=== PATIENT | female | born 1995 | race American Indian/Alaskan Native ===

== ENCOUNTER 2017-04-12 08:34 | Emergency (ER) | payer SELFPAY ==
[2017-04-12 09:02] LABS: Eosinophils % (Auto) 4.3 % (0.0-4.3); Hematocrit 42.6 % (30.3-42.9); Hemoglobin 14.5 gm/dl (10.1-14.3); Mean Corpuscular HGB Conc 34 % (30-34); Mean Corpuscular Hemoglobin 34 pg (28-32); Mean Corpuscular Volume 99 fl (79-97); Platelet Count 179 K/mm3 (140-440); Red Blood Count 4.31 M/mm3 (3.65-5.03); Red Cell Distribution Width 12.7 % (13.2-15.2); White Blood Count 7.5 K/mm3 (4.5-11.0)
[2017-04-12 09:30] LABS: Alanine Aminotransferase 11 units/L (7-56); Albumin 4.1 g/dL (3.9-5); Albumin/Globulin Ratio 1.5 %; Alkaline Phosphatase 78 units/L (35-129); Anion Gap 15 mmol/L; BUN/Creatinine Ratio 14; Blood Urea Nitrogen 10 mg/dL (7-17); Calcium 8.9 mg/dL (8.4-10.2); Carbon Dioxide 25 mmol/L (22-30); Chloride 102.9 mmol/L (98-107); Glucose 85 mg/dL (65-100); Lipase 34 units/L (13-60); Potassium 4.2 mmol/L (3.6-5.0); Sodium 139 mmol/L (137-145); Total Protein 6.8 g/dL (6.3-8.2)
[2017-04-12 09:59] LABS: Bacteria,Urine 1+ /HPF (Negative); Bilirubin,Urine NEG (Negative); Blood,Urine LG (Negative); Ketones,Urine NEG (Negative); Leukocyte Esterase,Urine NEG (Negative); Nitrite,Urine NEG (Negative); Urobilinogen,Urine < 2.0 mg/dL (<2.0)
[2017-04-12 10:01] LABS: RBC,Urine > 182.0 /HPF (0.0-6.0)
[2017-04-12 11:29] VITALS: BP 121/71
[2017-04-12] MEDS ORDERED: PEPCID PO ONE (11:46)
[2017-04-12] MEDS ORDERED: CARAFATE PO ONE (11:46)
[2017-04-12] MEDS ORDERED: TYLENOL PO ONE (11:46)
--- NOTE | 2017-04-12 11:47 | Emergency Department Report ---
ED General Adult HPI - General Chief complaint: Abdominal Pain Stated complaint: ABDOMINAL PAIN Time Seen by Provider: 04/12/17 11:38 Source: patient, RN notes reviewed Mode of arrival: Ambulatory Limitations: No Limitations - History of Present Illness Initial comments: This is a 21-year-old female who was previously unknown to this provider. States no history of abdominal surgeries, no primary care doctor, and does not take oral contraceptives. Patient further reports that she is not given for the past 2 months. The patient presents to the ER with a primary complaint of epigastric abdominal pain. The pain is intermittent, and worsens when she eats. It decreases with rest. Positive nausea, no vomiting. Patient also endorses "migraine" headache. The headache is throbbing and gradual. It is not sudden or thunderclap in nature. It did not reach maximal intensity within an hour, and it is not the worse headache of her life. Patient reports that she feels like her vision gets blurry intermittently, and reports that this happens approximately 3 times daily, and that this is been happening for weeks and months. It does not radiate anywhere, and it has no exacerbating or relieving factors. Patient is currently on a cellular phone, and is requesting to leave because her ride is here to pick her up. -: Gradual, week(s), month(s) Location: head, abdomen Severity scale (0 -10): 5 Quality: aching Consistency: intermittent Improves with: none Worsens with: none Associated Symptoms: headaches, loss of appetite, malaise, nausea/vomiting. denies: confusion, chest pain, cough, diaphoresis, fever/chills, rash, seizure, shortness of breath, syncope - Related Data Previous Rx's Medication Instructions Recorded Last Taken Type Acetaminophen [Tylenol Arthritis] 650 mg PO Q6HR PRN #30 tablet.er 04/12/17 Unknown Rx Famotidine [Pepcid] 20 mg PO QDAY #30 tablet 04/12/17 Unknown Rx Metoclopramide [Reglan] 10 mg PO QID PRN #30 tab 04/12/17 Unknown Rx Allergies Allergy/AdvReac Type Severity Reaction Status Date / Time No Known Allergies Allergy Unverified 04/12/17 08:43 ED Review of Systems ROS: Stated complaint: ABDOMINAL PAIN Other details as noted in HPI ED Past Medical Hx - Past Medical History Previous Medical History?: No - Surgical History Past Surgical History?: Yes Additional Surgical History: Right eye surgery - Social History Smoking Status: Current Every Day Smoker Substance Use Type: Alcohol, Marijuana - Medications Home Medications: Home Medications Medication Instructions Recorded Confirmed Last Taken Type Acetaminophen [Tylenol Arthritis] 650 mg PO Q6HR PRN #30 tablet.er 04/12/17 Unknown Rx Famotidine [Pepcid] 20 mg PO QDAY #30 tablet 04/12/17 Unknown Rx Metoclopramide [Reglan] 10 mg PO QID PRN #30 tab 04/12/17 Unknown Rx ED Physical Exam - General Limitations: No Limitations General appearance: alert, in no apparent distress - Head Head exam: Present: atraumatic, normocephalic - Eye Eye exam: Present: normal appearance, PERRL, EOMI, other (visual acuity intact to finger counting, color perception, reading at a close distance). Absent: nystagmus - ENT ENT exam: Present: normal exam, normal orophraynx, mucous membranes moist, TM's normal bilaterally, normal external ear exam - Neck Neck exam: Present: normal inspection, full ROM - Respiratory Respiratory exam: Present: normal lung sounds bilaterally. Absent: respiratory distress - Cardiovascular Cardiovascular Exam: Present: regular rate, normal rhythm. Absent: systolic murmur, diastolic murmur, rubs, gallop - GI/Abdominal GI/Abdominal exam: Present: soft, normal bowel sounds. Absent: distended, tenderness, guarding, rebound, rigid, pulsatile mass - External exam: Present: normal external exam Speculum exam: Present: normal speculum exam, vaginal bleeding, other (patient currently menstruating). Absent: cervical discharge Bi-manual exam: Present: normal bi-manual exam, other (escorted by ER guest services ambassador PANCHO NAVA). Absent: cervical motion tendernes, adnexal tenderness, adnexal mass, uterine enlargement, uterine tenderness - Extremities Exam Extremities exam: Present: normal inspection, full ROM, normal capillary refill. Absent: pedal edema, joint swelling, calf tenderness - Back Exam Back exam: Present: normal inspection, full ROM. Absent: tenderness, CVA tenderness (R), paraspinal tenderness, vertebral tenderness - Neurological Exam Neurological exam: Present: alert, oriented X3, CN II-XII intact, normal gait ( normal gait, normal tandem gait, no pronator drift, negative pass pointing, normal appiah, negative Romberg), other (Extraocular movements intact. Tongue midline. No facial droop. Facial sensation intact to light touch in the V1, V2 , V3 distribution bilaterally. 5 and 5 strength in 4 extremities.. Sensation is intact to light touch in 4 extremities.). Absent: motor sensory deficit - Psychiatric Psychiatric exam: Present: normal affect, normal mood - Skin Skin exam: Present: warm, dry, intact, normal color. Absent: rash ED Course Vital Signs 04/12/17 04/12/17 04/12/17 08:43 11:26 11:29 Temperature 99 F 98.4 F Pulse Rate 64 Respiratory 22 16 Rate Blood Pressure 127/82 Blood Pressure 121/71 [Left] O2 Sat by Pulse 100 100 Oximetry ED Medical Decision Making - Lab Data Result diagrams: 04/12/17 08:50 04/12/17 08:50 Vital Signs 04/12/17 04/12/17 04/12/17 08:43 11:26 11:29 Temperature 99 F 98.4 F Pulse Rate 64 Respiratory 22 16 Rate Blood Pressure 127/82 Blood Pressure 121/71 [Left] O2 Sat by Pulse 100 100 Oximetry Lab Results 04/12/17 04/12/17 04/12/17 Range/Units 08:50 08:50 09:10 WBC 7.5 (4.5-11.0) K/mm3 RBC 4.31 (3.65-5.03) M/mm3 Hgb 14.5 H (10.1-14.3) gm/dl Hct 42.6 (30.3-42.9) % MCV 99 H (79-97) fl MCH 34 H (28-32) pg MCHC 34 (30-34) % RDW 12.7 L (13.2-15.2) % Plt Count 179 (140-440) K/mm3 Lymph % (Auto) 18.7 (13.4-35.0) % [place] % (Auto) 9.0 H (0.0-7.3) % Eos % (Auto) 4.3 (0.0-4.3) % Baso % (Auto) 1.0 (0.0-1.8) % Lymph # 1.4 (1.2-5.4) K/mm3 [place] # 0.7 (0.0-0.8) K/mm3 Eos # 0.3 (0.0-0.4) K/mm3 Baso # 0.1 (0.0-0.1) K/mm3 Seg Neutrophils % 67.0 (40.0-70.0) % Seg Neutrophils # 5.0 (1.8-7.7) K/mm3 Sodium 139 (137-145) mmol/L Potassium 4.2 (3.6-5.0) mmol/L Chloride 102.9 (98-107) mmol/L Carbon Dioxide 25 (22-30) mmol/L Anion Gap 15 mmol/L BUN 10 (7-17) mg/dL Creatinine 0.7 (0.7-1.2) mg/dL Estimated GFR > 60 ml/min BUN/Creatinine Ratio 14 % Glucose 85 (65-100) mg/dL Calcium 8.9 (8.4-10.2) mg/dL Total Bilirubin 0.40 (0.1-1.2) mg/dL AST 16 (5-40) units/L ALT 11 (7-56) units/L Alkaline Phosphatase 78 (35-129) units/L Total Protein 6.8 (6.3-8.2) g/dL Albumin 4.1 (3.9-5) g/dL Albumin/Globulin Ratio 1.5 % Lipase 34 (13-60) units/L Urine Color Red (Yellow) Urine Turbidity Clear (Clear) Urine pH 6.0 (5.0-7.0) Ur Specific [place] 1.024 (1.003-1.030) Urine Protein 100 mg/dl (Negative) mg/dL Urine Glucose (UA) Neg (Negative) mg/dL Urine Ketones Neg (Negative) mg/dL Urine Blood Lg (Negative) Urine Nitrite Neg (Negative) Urine Bilirubin Neg (Negative) Urine Urobilinogen < 2.0 (<2.0) mg/dL Ur Leukocyte Esterase Neg (Negative) Urine WBC (Auto) 12.0 H (0.0-6.0) /HPF Urine RBC (Auto) > 182.0 (0.0-6.0) /HPF Urine Bacteria (Auto) 1+ (Negative) /HPF Urine HCG, Qual Negative (Negative) - EKG Data 04/12/17 13:42 Normal sinus, bradycardia, 51 beats per minutes, normal axis, normal intervals, not morphologically consistent with ST elevation myocardial infarction - Radiology Data Radiology results: report reviewed, image reviewed Noncontrast CT scan of the brain is negative for acute findings - Medical Decision Making Differential diagnosis, including but not limited to: Migraine headache, tension headache, cluster headache, GERD, reflux, gastritis Assessment and plan: 21-year-old female with 2 complaints. In terms of the patient's abdominal pain, her abdomen is soft and benign, she has reassuring vital signs, and she is tolerating liquid feeds. I see no indication to obtain advanced imaging at this time. Patient can initiate diet and lifestyle modification for her abdominal pain. Patient endorsed nonspecific visual changes over weeks, months and years. Objectively speaking she has a normal neurologic examination, is noted to be playing on a cellphone multiple times, and repeat neurologic examinations are unremarkable. She can follow-up in outpatient neurologist for her nonspecific neurologic symptoms. There does not appear to be an emergent condition that has been objectively demonstrated at this time, the patient is suitable to follow-up. Critical care attestation.: If time is entered above; I have spent that time in minutes in the direct care of this critically ill patient, excluding procedure time. ED Disposition Clinical Impression: Epigastric abdominal pain Disposition: DC-01 TO HOME OR SELFCARE Is pt being admited?: No Does the pt Need Aspirin: No Condition: Stable Instructions: Abdominal Pain (ED) Additional Instructions: Avoid consumption of Motrin, ibuprofen, Naprosyn, Aleve. Avoid consumption of heavy, spicy foods. Take the pain medication, nausea medication, headache medication as needed/directed. Follow-up with primary care doctor within the next month. Follow up with any of the listed neurology specialists within the next month. Return to the ER right away with new pain, worsened pain, migration of pain, fevers, chills, lethargy, irritability, projectile vomiting, change in mental status, confusion, inability to tolerate liquid feeds. Referrals: PRIMARY CURTIS, [Primary Care Provider] - 3-5 Days STEPHEN STEWART MD [Referring] - 3-5 Days RICARDO MURPHY MD [Staff Physician] - 3-5 Days GLENN HOLGUIN MD [Staff Physician] - 3-5 Days [facility] [Provider Group] - 3-5 Days
--- NOTE | 2017-04-12 12:27 | Cat Scan Report ---
CT HEAD WITHOUT CONTRAST: HISTORY: Dizziness, blurry vision. TECHNIQUE: Sequential 2.5mm CT images. COMPARISON: none. FINDINGS: Cerebral Parenchyma: Within normal limits. Cerebellum: Within normal limits. Brainstem: Within normal limits. Ventricles: Normal. Sella: Normal. Extra-axial spaces: Normal. Basal Cisterns: Normal. Intracranial Hemorrhage: None. Midline Shift: None. Calvarium: Normal. Sinuses: Normal. Mastoid Air Cells: Normal. Visualized Orbits: Normal. IMPRESSION: Cranial CT scan within normal limits.
[2017-04-12] MEDS ORDERED: BENTYL PO ONE (12:30)
== END 2017-04-12 13:50 | disposition home or self-care (01) ==
LOC: ED 08:34
DX: R10.13 Epigastric pain (principal); F17.200 Nicotine dependence, unspecified, uncomplicated; F12.10 Cannabis abuse, uncomplicated; R11.2 Nausea with vomiting, unspecified; R51 Headache; R63.0 Anorexia
CPT/HCPCS: 36415; 70450; 80053; 81001; 81025; 83690; 85025; 87210; 87591; 93005; 93010